=== PATIENT | female | born 1990 | race African-American/Black ===

== ENCOUNTER 2017-04-16 13:07 | Emergency (ER) | payer SELFPAY ==
[2017-04-16] MEDS ORDERED: NORMAL SALINE 1000 ML 1,000 ML IV ONE (14:29)
--- NOTE | 2017-04-16 14:30 | ER Document Report ---
ED Medical Screen (RME) - General Chief Complaint: Flank Pain Stated Complaint: FLANK PAIN Time Seen by Provider: 04/16/17 14:28 Notes: Patient reports approximately 3 days of right flank pain radiating into the right lower abdomen. With vomiting and fevers and chills. No previous history of surgeries. No chronic medical conditions. She denies any vaginal discharge or bleeding. TRAVEL OUTSIDE OF THE [place] IN LAST 30 DAYS: No - Related Data Allergies/Adverse Reactions: No Known Allergies Allergy (Verified 06/23/14 14:52) Past Medical History - Social History Frequency of alcohol use: Social Drug Abuse: None Renal/ Medical History: Denies: Hx Peritoneal Dialysis - Immunizations Immunizations up to date: Yes Hx Diphtheria, Pertussis, Tetanus Vaccination: Yes Physical Exam - Vital signs Vitals: Temp Pulse Resp BP Pulse Ox 100.1 F 93 13 121/67 99 04/16/17 13:36 04/16/17 13:36 04/16/17 13:36 04/16/17 13:36 04/16/17 13:36 Course - Vital Signs Vital signs: Temp Pulse Resp BP Pulse Ox 100.1 F 93 13 121/67 99 04/16/17 13:36 04/16/17 13:36 04/16/17 13:36 04/16/17 13:36 04/16/17 13:36
[2017-04-16 14:59] LABS: HEMOGLOBIN 14.2 g/dL (12.0-15.5); HGB HCT DIFFERENCE 1.6; MEAN CORPUSCULAR HEMOGLOBIN 33.2 pg (27.0-33.4); MEAN CORPUSCULAR HGB CONC 34.7 g/dL (32.0-36.0); MEAN CORPUSCULAR VOLUME 96 fl (80-97); RED BLOOD COUNT 4.28 10^6/uL (3.72-5.28); RED CELL DISTRIBUTION WIDTH 13.1 % (11.5-14.0); WHITE BLOOD COUNT 17.1 10^3/uL (4.0-10.5)
[2017-04-16 15:04] LABS: APPEARANCE,URINE SLIGHTLY-CLOUDY; BILIRUBIN,URINE NEGATIVE (NEGATIVE); CALCIUM OXALATE CRYSTALS,URINE FEW /HPF; GLUCOSE, URINE NEGATIVE (NEGATIVE); KETONES,URINE 20 mg/dL (NEGATIVE); LEUKOCYTE ESTERASE,URINE MODERATE (NEGATIVE); NITRITE,URINE NEGATIVE (NEGATIVE); PROTEIN,URINE 100 mg/dL (NEGATIVE); URINE SPECIFIC GRAVITY 1.016; UROBILINOGEN,URINE NEGATIVE mg/dL (<2.0)
[2017-04-16 15:18] LABS: ALANINE AMINOTRANSFERASE 19 U/L (9-52); ALBUMIN 4.5 g/dL (3.5-5.0); ALKALINE PHOSPHATASE 55 U/L (38-126); ANION GAP 13 (5-19); ASPARTATE AMINO TRANSFERASE 14 U/L (14-36); BILIRUBIN,DIRECT 0.4 mg/dL (0.0-0.4); BILIRUBIN,TOTAL 0.9 mg/dL (0.2-1.3); BLOOD UREA NITROGEN 9 mg/dL (7-20); CALCIUM 9.7 mg/dL (8.4-10.2); CARBON DIOXIDE 26 mmol/L (22-30); CHLORIDE 100 mmol/L (98-107); GLUCOSE 137 mg/dL (75-110); LIPASE 40.1 U/L (23-300); POTASSIUM 3.4 mmol/L (3.6-5.0); SODIUM 139.3 mmol/L (137-145); TOTAL PROTEIN 7.6 g/dL (6.3-8.2)
[2017-04-16 15:30] LABS: BAND NEUTROPHILS % (MANUAL) 7 % (3-5); BASOPHILS % (MANUAL) 0 % (0-2); EOSINOPHILS % (MANUAL) 0 % (0-6); LYMPHOCYTES % (MANUAL) 5 % (13-45); TOTAL CELLS COUNTED 100
[2017-04-16 15:31] LABS: RBC MORPHOLOGY COMMENT NORMO-CYTIC/CHROMIC; TOXIC GRANULATION SLIGHT
[2017-04-16] MEDS ORDERED: LEVOFLOXACIN 750 MG/D5W RTU 750 MG/150 ML RTUPB IV ONE (15:48)
[2017-04-16] MEDS ORDERED: KETOROLAC TROMETHAMINE INJ/PF 30 MG/1 ML SDV IV ONE (15:49)
--- NOTE | 2017-04-16 16:04 | ER Document Report ---
ED GI/ - General Mode of Arrival: Ambulatory Information source: Patient TRAVEL OUTSIDE OF THE [place] IN LAST 30 DAYS: No <LIZZY COMBS - Last Filed: 04/16/17 16:06> <GABRIEL BUNCH - Last Filed: 04/16/17 18:05> - General Chief Complaint: Flank Pain Stated Complaint: FLANK PAIN Time Seen by Provider: 04/16/17 14:28 Notes: Patient is a 26 year old female that presents to the emergency department today with complaints of right sided flank and abdominal pain which began three days ago. Patient also mentions that she has had pain with urination. Patient adds that walking seems to exacerbate her pain. Patient denies a history of kidney stones. (LIZZY COMBS) - Related Data Allergies/Adverse Reactions: No Known Allergies Allergy (Verified 06/23/14 14:52) Past Medical History - General Information source: Patient - Social History Smoking Status: Current Every Day Smoker Cigarette use (# per day): Yes Frequency of alcohol use: Social Drug Abuse: None Lives with: Family Family History: Reviewed & Not Pertinent Patient has suicidal ideation: No Patient has homicidal ideation: No - Medical History Medical History: Negative Surgical Hx: Negative - Immunizations Immunizations up to date: Yes Hx Diphtheria, Pertussis, Tetanus Vaccination: Yes <LIZZY COMBS - Last Filed: 04/16/17 16:06> Review of Systems - Review of Systems Constitutional: Fever EENT: No symptoms reported Cardiovascular: No symptoms reported Respiratory: No symptoms reported Gastrointestinal: No symptoms reported Genitourinary: See HPI, Dysuria, Flank pain Female Genitourinary: No symptoms reported Musculoskeletal: No symptoms reported Skin: No symptoms reported Hematologic/Lymphatic: No symptoms reported Neurological/Psychological: No symptoms reported <LIZZY COMBS - Last Filed: 04/16/17 16:06> Physical Exam <LIZZY COMBS - Last Filed: 04/16/17 16:06> <GABRIEL BUNCH - Last Filed: 04/16/17 18:05> - Vital signs Vitals: Temp Pulse Resp BP Pulse Ox 100.1 F 93 13 121/67 99 04/16/17 13:36 04/16/17 13:36 04/16/17 13:36 04/16/17 13:36 04/16/17 13:36 - Notes Notes: Physical Exam: General: Alert, appears mildly uncomfortable. HEENT: Normocephalic. Atraumatic. PERRL. Extraocular movements intact. Oropharynx clear. Neck: Supple. Non-tender. Respiratory: No respiratory distress. Clear and equal breath sounds bilaterally. Cardiovascular: Regular rate and rhythm. Abdominal: RUQ tenderness with palpation. No distension. Normal Bowel Sounds. Back: Right flank tenderness to percussion. No deformity or step off. Extremities: Moves all four extremities. Upper extremities: Normal inspection. Normal ROM. Lower extremities: Normal inspection. No edema. Normal ROM. Neurological: Normal cognition. AAOx4. Normal speech. Psychological: Normal affect. Normal Mood. Skin: Warm. Dry. Normal color. (LIZZY COMBS) Course - Laboratory Result Diagrams: 04/16/17 14:40 04/16/17 14:40 <LIZZY COMBS - Last Filed: 04/16/17 16:06> - Laboratory Result Diagrams: 04/16/17 14:40 04/16/17 14:40 - Diagnostic Test Radiology reviewed: Image reviewed, Reports reviewed - CT scan is consistent with right pyelonephritis <GABRIEL BUNCH - Last Filed: 04/16/17 18:05> - Vital Signs Vital signs: Temp Pulse Resp BP Pulse Ox 100.1 F 93 13 121/67 99 04/16/17 13:36 04/16/17 13:36 04/16/17 13:36 04/16/17 13:36 04/16/17 13:36 - Laboratory Laboratory results interpreted by me: 04/16/17 04/16/17 04/16/17 14:40 14:40 14:40 WBC 17.1 H Plt Count 134 L Seg Neuts % (Manual) 84 H Band Neutrophils % 7 H Lymphocytes % (Manual) 5 L Abs Neuts (Manual) 15.6 H Potassium 3.4 L Glucose 137 H Urine Protein 100 H Urine Ketones 20 H Urine Blood MODERATE H Ur Leukocyte Esterase MODERATE H Discharge <LIZZY COMBS - Last Filed: 04/16/17 16:06> <GABRIEL BUNCH - Last Filed: 04/16/17 18:05> - Discharge Clinical Impression: Pyelonephritis Leukocytosis Qualifiers: Leukocytosis type: bandemia Qualified Code(s): D72.825 - Bandemia Condition: Stable Disposition: HOME, SELF-CARE Additional Instructions: Pyelonephritis: Your evaluation shows evidence of pyelonephritis. This is an infection in the kidney. Typical symptoms are fever, pain in the flank, pain on urination, and frequent urination. Many cases of pyelonephritis can be treated at home. Hospital care may be necessary for patients who are very ill, or elderly or . Pyelonephritis is treated with antibiotics. Be sure to take all the medication as prescribed. Drink plenty of liquids (about three quarts per day) . You may take acetaminophen for fever. You should feel significantly improved within two days. You should have a recheck of your urine in about one week to insure that the infection is gone. Return for a re-examination if your symptoms worsen in any way -- such as high fever, shaking chills, severe weakness or dizziness, severe pain, or inability to pass your urine. TAKE THE MEDICATIONS PRESCRIBED. START THE CIPRO ANTIBIOTIC TOMORROW. DRINK PLENTY OF FLUIDS. REST. TAKE TYLENOL AND IBUPROFEN FOR PAIN AND FEVER IF NEEDED. FOLLOW UP WITH A LOCAL MEDICAL DOCTOR IF NOT IMPROVING. RETURN TO THE EMERGENCY ROOM IF ANY NEW OR WORSENING SYMPTOMS. Prescriptions: Ciprofloxacin HCl [Cipro 500 mg Tablet] 500 mg PO BID #14 tablet Ondansetron HCl [Zofran 4 mg Tablet] 1 - 2 tab PO Q4H PRN #12 tablet PRN Reason: Forms: Return to Work Scribe Attestation: 04/16/17 17:30 I personally performed the services described in the documentation, reviewed and edited the documentation which was dictated to the scribe in my presence, and it accurately records my words and actions. (GABRIEL BUNCH) Scribe Documentation - Scribe Written by Michelle:: Michelle Galloway, 04/16/2017 1611 acting as scribe for :: Zuleyma <LIZZY COMBS - Last Filed: 04/16/17 16:06>
--- NOTE | 2017-04-16 17:02 | RADIOLOGY REPORT (SQ) ---
EXAM DESCRIPTION: CT LTD RENAL STONE PROTOCOL ON COMPLETED DATE/TIME: 04/16/2017 4:50 pm REASON FOR STUDY: pyelonephritis, hematuria, ca ox crystals COMPARISON: None. TECHNIQUE: CT scan of the abdomen and pelvis performed without intravenous or oral contrast. Images reviewed with lung, soft tissue, and bone windows. Reconstructed coronal and sagittal MPR images revi ewed. All images stored on PACS. All CT scanners at this facility use dose modulation, iterative reconstruction, and/or weight based d osing when appropriate to reduce radiation dose to as low as reasonably achievable (ALARA). [facility]: Dose Right [facility]: CareDose [facility]: Dose Right [facility]: Teradose 4D [facility]: Smart [employer] RADIATION DOSE: Up-to-date CT equipment and radiation dose reduction techniques were employed. CTDIv ol: 4.8 mGy. DLP: 239 mGy-cm.mGy. LIMITATIONS: None. FINDINGS: LOWER CHEST: No significant findings. No nodules or infiltrates. NON-CONTRASTED LIVER, SPLEEN, ADRENALS: Evaluation limited by lack of IV contrast. No identified sign ificant masses. PANCREAS: No masses. No peripancreatic inflammatory changes. GALLBLADDER: No identified stones by CT criteria. No inflammatory changes to suggest cholecystitis. RIGHT KIDNEY AND URETER: No suspicious masses. Assessment limited by lack of IV contrast. Perinephr ic stranding. No urinary tract stones identified. Mild hydronephrosis. LEFT KIDNEY AND URETER: No suspicious masses. Assessment limited by lack of IV contrast. No signifi cant calcifications. No hydronephrosis or hydroureter. AORTA AND RETROPERITONEUM: No aneurysm. No retroperitoneal masses or adenopathy. BOWEL AND PERITONEAL CAVITY: No obvious masses or inflammatory changes. No free fluid. APPENDIX: Not visualized. PELVIS, BLADDER, AND ABDOMINAL WALL:No abnormal masses. No free fluid. Bladder normal. BONES: No significant findings. OTHER: No other significant finding. IMPRESSION: Mild hydronephrosis and inflammatory changes in the right kidney without visualized urin julee tract stone. This could be due to recently passed stone or pyelonephritis. Correlation with uri nalysis is recommended. COMMENT: Quality ID # [id number]: Final reports with documentation of one or more dose reduction techniques (e.g., Automated exposure control, adjustment of the mA and/or kV according to patient size, use of iterative reconstruction technique) TECHNICAL DOCUMENTATION: JOB ID: [id number] [facility] [employer]- All Rights Reserved
[2017-04-16] MEDS ORDERED: CEFTRIAXONE 1 GM/D5W RTU 50 ML IV ONE (17:52)
[2017-04-16] MEDS ORDERED: ONDANSETRON ODT 4 MG TAB (6 TAB/DSPK) PO PRN (18:01)
[2017-04-16] MEDS ORDERED: HYDROCODONE/ACETAMINOPHEN 5-325 MG 6 TAB/DSPK PO PRN (18:01)
[2017-04-16 18:34] VITALS: BP 112/74
[2017-04-16] MEDS ORDERED: ACETAMINOPHEN 325 MG TABLET PO ONE (18:34)
[2017-04-16] MEDS ORDERED: CEFTRIAXONE 1 GM/D5W RTU 1 GM/50 ML RTUPB IV ONE (19:00)
== END 2017-04-16 19:06 | disposition home or self-care (01) ==
LOC: ER 13:07
DX: N12 Tubulo-interstitial nephritis, not specified as acute or chronic (principal); R10.31 Right lower quadrant pain; F17.210 Nicotine dependence, cigarettes, uncomplicated
CPT/HCPCS: 99284; 96361; 96375; 96365; 96367; 36415; 87040; 87086; 83690; 85025; 81025; 87077; 87088; 80053; 81001; 87186; 76380; J1885; J7030; J0696; J1956

== ENCOUNTER 2017-12-12 23:58 | Emergency (ER) | payer SELFPAY ==
[2017-12-13] MEDS ORDERED: LIDOCAINE 1%/EPINEPHRINE INJ 20 ML VIAL INJ ONE (01:03)
[2017-12-13] MEDS ORDERED: DIPH/PERTUSS(ACELL)/TETANUS VAC/PF 0.5 ML SYR (>=10YO) IM ONE (01:04)
[2017-12-13] MEDS ORDERED: AMOXICILLIN TRIHYDRATE 500 MG CAPSULE PO ONE (01:04)
[2017-12-13] MEDS ORDERED: AMOXICILLIN TR/POT CLAVULANATE 500-125 MG TAB PO ONE (01:04)
--- NOTE | 2017-12-13 03:18 | ER Document Report ---
ED Animal Bite - General Chief Complaint: Dog Bite Stated Complaint: POSSIBLE DOG BITE Time Seen by Provider: 12/13/17 00:51 Notes: Patient is a 27-year-old female who comes emergency department for chief complaint of dog bite to the right lower leg. She states that she was walking outside when a random dog ran up to her and bit her. She states the dog ran away afterwards. She states it looked like a black and white pitbull. Animal control has not been called yet. TRAVEL OUTSIDE OF THE [place] IN LAST 30 DAYS: No - Related Data Allergies/Adverse Reactions: No Known Allergies Allergy (Verified 06/23/14 14:52) Past Medical History - General Information source: Patient - Social History Smoking Status: Never Smoker Drug Abuse: None Lives with: Spouse/Significant other Family History: Reviewed & Not Pertinent Patient has suicidal ideation: No Patient has homicidal ideation: No - Medical History Medical History: Negative Renal/ Medical History: Denies: Hx Peritoneal Dialysis Surgical Hx: Negative - Immunizations Immunizations up to date: Yes Hx Diphtheria, Pertussis, Tetanus Vaccination: Yes Review of Systems - Review of Systems Constitutional: No symptoms reported EENT: No symptoms reported Cardiovascular: No symptoms reported Respiratory: No symptoms reported Gastrointestinal: No symptoms reported Genitourinary: No symptoms reported Female Genitourinary: No symptoms reported Musculoskeletal: See HPI Skin: See HPI Hematologic/Lymphatic: No symptoms reported Neurological/Psychological: No symptoms reported Physical Exam - Vital signs Vitals: Temp Pulse Resp BP Pulse Ox 98.6 F 112 H 18 155/100 H 100 12/13/17 00:21 12/13/17 00:12/13/17 00:12/13/17 00:12/13/17 00:21 - Notes Notes: GENERAL: Alert, interacts well. No acute distress. HEAD: Normocephalic, atraumatic. EYES: Pupils equal, round, and reactive to light. Extraocular movements intact. ENT: Oral mucosa moist, tongue midline. NECK: Full range of motion. Supple. Trachea midline. LUNGS: Clear to auscultation bilaterally, no wheezes, rales, or rhonchi. No respiratory distress. HEART: Regular rate and rhythm. No murmur ABDOMEN: Soft, non-tender. Non-distended. Bowel sounds present in all 4 quadrants. EXTREMITIES: Right leg distally over the lateral aspect has to 3 cm gaping wounds, down through subcutaneous tissue, communicating. Medial aspect has a large 6 cm V-shaped gaping wound down through subcutaneous tissue. No evidence of tendon, muscle, nerve, or large vessel injury. Normal strength, range of motion, ambulation, distal neurovascular exam. BACK: no cervical, thoracic, lumbar midline tenderness. No saddle anesthesia, normal distal neurovascular exam. NEUROLOGICAL: Alert and oriented x3. Normal speech. [cranial nerves II through XII grossly intact]. PSYCH: Normal affect, normal mood. SKIN: Warm, dry, normal turgor. No rashes or lesions noted. Course - Re-evaluation Re-evalutation: Requested nurse to complete dog bite form. Tetanus updated. Started on antibiotics. Patient with multiple deep wounds down to the muscle but not including the muscle and no evidence of tendon, ligament, large vessel, or nerve damage. Areas were cleaned thoroughly, approximated because of the large gaping wounds, he did leave small areas for drainage, discussed wound care and return precautions in detail. I discussed rabies vaccine and immunoglobulin, however this was declined. - Vital Signs Vital signs: Temp Pulse Resp BP Pulse Ox 98.9 F 100 18 147/101 H 97 12/13/17 03:32 12/13/17 03:32 12/13/17 00:21 12/13/17 03:32 12/13/17 03:32 Procedures - Laceration/Wound Repair Right lateral leg #1 Wound length (cm): 3 Wound's Depth, Shape: Irregular Laceration pre-procedure: Sterile PPE donned, Sterile drapes applied, Shur- Clens applied Anesthetic type: 1% Lidocaine w/epi Volume Anesthetic (mLs): 3 Wound explored: Clean, No foreign body removed Irrigated w/ Saline (mLs): 40 Wound Repaired With: Sutures Suture Size/Type: 3:0, Nylon Number of Sutures: 5 - vertical matress Post-procedure wound care: Sterile dressing applied Post-procedure NV exam normal: Yes Complications: No Right lateral leg #2 Wound length (cm): 3 Wound's Depth, Shape: Irregular Laceration pre-procedure: Sterile PPE donned, Sterile drapes applied, Shur- Clens applied Anesthetic type: 1% Lidocaine w/epi Volume Anesthetic (mLs): 3 Wound explored: Clean, No foreign body removed Irrigated w/ Saline (mLs): 40 Wound Debrided: Minimal Wound Repaired With: Sutures Suture Size/Type: 3:0, Nylon Number of Sutures: 5 - vertical matress Post-procedure wound care: Sterile dressing applied Post-procedure NV exam normal: Yes Complications: No Right medial leg Wound length (cm): 6 Wound's Depth, Shape: Irregular, Flap Laceration pre-procedure: Sterile PPE donned, Sterile drapes applied, Shur- Clens applied Anesthetic type: 1% Lidocaine w/epi Volume Anesthetic (mLs): 4 Wound explored: Clean, No foreign body removed Irrigated w/ Saline (mLs): 60 Wound Repaired With: Sutures Suture Size/Type: 3:0, Nylon Number of Sutures: 9 Layer Closure?: Yes Deep Layer Suture Size/Type: 5:0, Other - vicryl Number Deep Layer Sutures: 4 Post-procedure wound care: Sterile dressing applied Post-procedure NV exam normal: Yes Complications: No Discharge - Discharge Clinical Impression: Laceration of skin Dog bite Qualifiers: Encounter type: initial encounter Qualified Code(s): W54.0XXA - Bitten by dog, initial encounter Condition: Stable Disposition: HOME, SELF-CARE Additional Instructions: The lacerations had to be closed because of their extent. Clean gently with soap and water, apply topical antibiotic, take oral antibiotic as prescribed. Keep wounds clean and dressed, avoid soaking. They will ooze for the first few days. Sutures need to come out in about 10 days at a medical facility. Follow- up with primary care. Return if you worsen including redness, swelling, discolored drainage, fever, or any other concerning symptoms. Prescriptions: Amox Tr/Potassium Clavulanate [Augmentin 875-125 Tablet] 1 tab PO BID 7 Days tablet Forms: Return to Work, Elevated Blood Pressure
[2017-12-13 04:32] VITALS: BP 147/101
== END 2017-12-13 03:50 | disposition home or self-care (01) ==
LOC: ER 23:58
DX: S81.851A Open bite, right lower leg, initial encounter (principal); W54.0XXA Bitten by dog, initial encounter; Y93.01 Activity, walking, marching and hiking; Z23 Encounter for immunization
CPT/HCPCS: 99283; 90471; 90715; 12002; 12032; J3490

== ENCOUNTER 2017-12-25 10:51 | Emergency (ER) | payer SELFPAY ==
[2017-12-25 11:02] VITALS: BP 145/94
--- NOTE | 2017-12-25 11:14 | ER Document Report ---
ED Suture/Wound Recheck - General Chief Complaint: Suture Removal Stated Complaint: SUTURE REMOVAL Time Seen by Provider: 12/25/17 11:10 Mode of Arrival: Ambulatory Information source: Patient Notes: 27-year-old female presented ED for removal of sutures from her right leg. She states the sutures were placed 13 days ago for an injury. States she still has pain at a 1/5. Patient is alert and oriented respirations regular unlabored speaking in full sentences walks with a even steady gait. TRAVEL OUTSIDE OF THE [place] IN LAST 30 DAYS: No - HPI Previous ED treatment: Dog bite Antibiotics given previously: Prescription Quality of pain: Achy Severity: Mild Pain Level: 1 Context: Injury Symptoms since procedure: Pain - Very mild pain Exacerbated by: Movement, Walking Relieved by: Denies - Related Data Allergies/Adverse Reactions: No Known Allergies Allergy (Verified 12/25/17 10:52) Past Medical History - General Information source: Patient - Social History Smoking Status: Current Every Day Smoker Cigarette use (# per day): Yes - 6 cigarettes a day Chew tobacco use (# tins/day): No Smoking Education Provided: Yes - 4 minutes Frequency of alcohol use: Occasional Drug Abuse: None Occupation: [employer] Lives with: Spouse/Significant other Family History: Reviewed & Not Pertinent Patient has suicidal ideation: No Patient has homicidal ideation: No - Past Medical History Cardiac Medical History: Reports: None Pulmonary Medical History: Reports: None EENT Medical History: Reports: None Neurological Medical History: Reports: None Endocrine Medical History: Reports: None Renal/ Medical History: Reports: None Malignancy Medical History: Reports: None GI Medical History: Reports: None Musculoskeltal Medical History: Reports Hx Musculoskeletal Trauma Skin Medical History: Reports None Psychiatric Medical History: Reports: None Traumatic Medical History: Reports: Hx Fractures - Right finger Infectious Medical History: Reports: None Surgical Hx: Negative Past Surgical History: Reports: None - Immunizations Immunizations up to date: Yes Hx Diphtheria, Pertussis, Tetanus Vaccination: Yes Review of Systems - Review of Systems Constitutional: No symptoms reported EENT: No symptoms reported Cardiovascular: No symptoms reported Respiratory: No symptoms reported Gastrointestinal: No symptoms reported Genitourinary: No symptoms reported Female Genitourinary: No symptoms reported Musculoskeletal: Other - Right finger fracture Skin: No symptoms reported Hematologic/Lymphatic: No symptoms reported Neurological/Psychological: No symptoms reported -: Yes All other systems reviewed and negative Physical Exam - Vital signs Vitals: Temp Pulse Resp BP Pulse Ox 98.1 F 71 16 145/94 H 98 12/25/17 11:00 12/25/17 11:12/25/17 11:12/25/17 11:12/25/17 11:00 Interpretation: Normal - General General appearance: Appears well, Alert - HEENT Head: Normocephalic, Atraumatic Eyes: Normal Pupils: PERRL - Respiratory Respiratory status: No respiratory distress Chest status: Nontender Breath sounds: Normal Chest palpation: Normal - Cardiovascular Rhythm: Regular Heart sounds: Normal auscultation Murmur: No - Abdominal Inspection: Normal Distension: No distension Bowel sounds: Normal Tenderness: Nontender Organomegaly: No organomegaly - Back Back: Normal, Nontender - Extremities General upper extremity: Normal inspection, Nontender, Normal color, Normal ROM , Normal temperature General lower extremity: Normal color, Normal ROM, Normal temperature, Normal weight bearing. No: Edwige's sign Calf: Tender, Other - 5 vertical mattress sutures in the right lateral leg, 5 sutures to another laceration to the right lateral leg and 9 sutures to the right posterior medial leg from dog bites to the lateral and posterior leg there is some swelling to the leg no redness no drainage no signs or symptoms of infection. The sutures were very tight and the leg was edematous. - Neurological Neuro grossly intact: Yes Cognition: Normal Orientation: AAOx4 [place] Scale Eye Opening: Spontaneous [place] Com[place] Scale Verbal: Oriented [place] Com[place] Scale Motor: Obeys Commands Liliane Coma Scale Total: 15 Speech: Normal Motor strength normal: LUE, RUE, LLE, RLE Sensory: Normal - Psychological Associated symptoms: Normal affect, Normal mood - Skin Skin Temperature: Warm Skin Moisture: Dry Skin Color: Normal Course - Re-evaluation Re-evalutation: 12/25/17 13:51 Sutures removed from the right calf, site had been cleaned then benzoin and Steri-Strip applied to the injuries as the wounds were very tight and could possibly open a little bit due to the swelling and edema to the calf. There is no redness or inflammation noted. She was discharged home and instructed to follow-up with the primary doctor. - Vital Signs Vital signs: Temp Pulse Resp BP Pulse Ox 98.1 F 71 16 145/94 H 98 12/25/17 11:00 12/25/17 11:00 12/25/17 11:00 12/25/17 11:00 12/25/17 11:00 Discharge - Discharge Clinical Impression: Visit for suture removal Condition: Stable Disposition: HOME, SELF-CARE Instructions: Family Physicians / Practices, Care of Steri-Strip Closure ([facility]) , Suture Removal Additional Instructions: Acetaminophen Acetaminophen may be taken for pain relief or fever control. It's much safer than aspirin, offering a wider range of "safe" dosages. It is safe during . Some brand names are Tylenol, Panadol, Datril, Anacin 3, Tempra, and Liquiprin. Acetaminophen can be repeated every four hours. The following are maximum recommended dosages: WEIGHT Dose Drops Elixir Chewable( 80mg) (LBS.) drprs=droppers tsp=teaspoon 6 40 mg .4 ml (1/2) 6-11 80 mg .8 ml (full) 1/2 tsp 1 tab 12-16 120 mg 1 1/2 drprs 3/4 tsp 1 1/2 tabs 17-23 160 mg 2 drprs 1 tsp 2 tabs 24-30 240 mg 3 drprs 1 1/2 tsp 3 tabs 30-35 320 mg 2 tsp 4 tabs 36-41 360 mg 2 1/4 tsp 4 1 /2 tabs 42-47 400 mg 2 1/2 tsp 5 tabs 48-53 480 mg 3 tsp 6 tabs 54-59 520 mg 3 1/4 tsp 6 1 /2 tabs 60-64 560 mg 3 1/2 tsp 7 tabs 65-70 600 mg 3 3/4 tsp 7 1 /2 tabs 71-76 640 mg 4 tsp 8 tabs 77-82 720 mg 4 1/2 tsp 9 tabs 83-88 800 mg 5 tsp 10 tabs >89 pounds or adults 650 mg to 900 mg Acetaminophen can be repeated every four hours. Maximum daily dose not to exceed 4000 mg. These maximum recommended dosages are slightly higher than the dosages written on the product container, but these dosages are very safe and well below the toxic dosage for acetaminophen. Ibuprofen Ibuprofen is an excellent, safe drug for pain control. In addition, it has potent antiinflammatory effects which are beneficial, especially in the treatment of injuries, arthritis, or tendonitis. It's best to take ibuprofen with food. Persons with ulcer disease or allergy to aspirin should notify their physician of this before taking ibuprofen. Take the medication exactly as prescribed. Don't take additional doses unless instructed to do so by your doctor. If you develop wheezing, shortness of breath, hives, faintness, stomach pain, vomiting, or dark black stools, return for re-evaluation at once. FOLLOW-UP CARE: If you have been referred to a physician for follow-up care, call the physician s office for an appointment as you were instructed or within the next two days. If you experience worsening or a significant change in your symptoms, notify the physician immediately or return to the Emergency Department at any time for re-evaluation. Forms: Elevated Blood Pressure, Smoking Cessation Education
== END 2017-12-25 11:48 | disposition home or self-care (01) ==
LOC: ER 10:51
DX: S81.811D Laceration without foreign body, right lower leg, subsequent encounter (principal); X58.XXXD Exposure to other specified factors, subsequent encounter; F17.210 Nicotine dependence, cigarettes, uncomplicated

== ENCOUNTER 2018-08-05 11:26 | Emergency (ER) | payer SELFPAY ==
[2018-08-05 11:33] VITALS: BP 132/90
[2018-08-05] MEDS ORDERED: DIPHENHYDRAMINE HCL 50 MG/ML VIAL IM ONE (11:54)
[2018-08-05] MEDS ORDERED: FAMOTIDINE 20 MG TABLET PO ONE (11:54)
[2018-08-05] MEDS ORDERED: METHYLPREDNISOLONE INJ 125 MG/2 ML SDV IM ONE (11:54)
--- NOTE | 2018-08-05 12:00 | ER Document Report ---
HPI - HPI Time Seen by Provider: 08/05/18 11:48 Pain Level: 2 Notes: Patient is a 27-year-old female with no significant past medical history who presents emergency department complaining of generalized hives that began on her arms yesterday. Patient states that she has been using some Benadryl cream with minimal relief. Patient states that the rash is pruritic. She does recall using a new moisturizer prior to the start of her symptoms, but no other new chemicals/detergents/soaps/close/foods. She does not take medicines daily. Patient states that she did have an insect bite to the right medial ankle that has had some discomfort associated. She has not noticed any streaking or abscess. Denies drug allergies. Denies any headache, fever, neck pain, changes in vision/speech/mentation/hearing, drooling, hoarseness, URI, sore throat, chest pain, palpitations, syncope, cough, shortness of breath, wheeze, dyspnea, abdominal pain, nausea/vomiting/diarrhea, urinary retention, dysuria, hematuria, loss of control of bowel or bladder, numbness/tingling, saddle anesthesia, muscle paralysis/weakness. - ROS Systems Reviewed and Negative: Yes All other systems reviewed and negative - REPRODUCTIVE Reproductive: DENIES: : Past Medical History - Social History Smoking Status: Never Smoker Family History: Reviewed & Not Pertinent Renal/ Medical History: Denies: Hx Peritoneal Dialysis Musculoskeletal Medical History: Reports Hx Musculoskeletal Trauma Traumatic Medical History: Reports: Hx Fractures - Right finger - Immunizations Immunizations up to date: Yes Hx Diphtheria, Pertussis, Tetanus Vaccination: Yes Vertical Provider Document - CONSTITUTIONAL Agree With Documented VS: Yes Notes: PHYSICAL EXAMINATION: GENERAL: Well-appearing, well-nourished and in no acute distress. HEAD: Atraumatic, normocephalic. EYES: Pupils equal round and reactive to light, extraocular movements intact, sclera anicteric, conjunctiva are normal. ENT: EAC clear b/l. TM's intact b/l without erythema, fluid, or perforation. Nares patent and without discharge. oropharynx clear without exudates. No tonsilar hypertrophy or erythema. Moist mucous membranes. No sinus tenderness. No angioedema or airway compromise. NECK: Normal range of motion, supple without lymphadenopathy LUNGS: Breath sounds clear to auscultation bilaterally and equal. No wheezes rales or rhonchi. HEART: Regular rate and rhythm without murmurs, rubs, gallops. ABDOMEN: Soft, nontender, nondistended abdomen. No guarding, no rebound. No masses appreciated. Normal bowel sounds present. No CVA tenderness bilaterally. Musculoskeletal: FROM to passive/active. Strength 5+/5. Extremities: No cyanosis, clubbing, or edema b/l. Peripheral pulses 2+. Capillary refill less than 3 seconds. NEUROLOGICAL: Cranial nerves grossly intact. Normal speech, normal gait. Normal sensory, motor exams PSYCH: Normal mood, normal affect. SKIN: Generalized hives primarily to her extremities sparing the palms, soles, and oral mucosa. Nontender. There is also a mildly erythemic area noted to the medial right ankle (location of insect bite) that has minimal tenderness without significant induration, fluctuance, purulence, or streaks. Size is approximately 1 cm in diameter with mild surrounding erythema. No point of maximal tenderness to that spot. - INFECTION CONTROL TRAVEL OUTSIDE OF THE [place] IN LAST 30 DAYS: No Course - Re-evaluation Re-evalutation: 08/05/18 12:50 Patient is an afebrile, well-hydrated, 27-year-old female who presents the emergency department with hives, unspecified, and insect bite to her right medial ankle with a mild cellulitis component. Vitals are acceptable without significant tachycardia, tachypnea, or hypoxia. PE is otherwise unremarkable. Patient is nontoxic-appearing and is tolerating p.o. without difficulty. No incision and drainage is warranted at this time based on H&P. Patient was given Solu-Medrol, Benadryl, and Pepcid today. Her rash has improved from initial evaluation and pt does not want to wait in the ED any longer. Low suspicion for any sepsis, meningitis, severe dehydration, respiratory compromise, angioedema, or other systemic emergent condition at this time. Patient is aware that condition can change from initial presentation and she needs to monitor symptoms closely and seek medical attention with any acute changes. I did review medicines with Dr. Snyder. We will hold off on any steroid taper as I will be covering the mild cellulitis with an antibiotic. I did review with the patient that she needs to use Benadryl and Pepcid in combination routinely for the next couple days and monitor symptoms. Recheck with your PCM this week. Return to the ED with any other worsening/concerning symptoms as reviewed. Patient is in agreement. - Vital Signs Vital signs: Temp Pulse Resp BP Pulse Ox 99.2 F 80 16 132/90 H 98 08/05/18 11:32 08/05/18 11:32 08/05/18 11:32 08/05/18 11:32 08/05/18 11:32 Discharge - Discharge Clinical Impression: Hives Cellulitis Qualifiers: Site of cellulitis: extremity Site of cellulitis of extremity: lower extremity Laterality: right Qualified Code(s): L03.115 - Cellulitis of right lower limb Condition: Stable Disposition: HOME, SELF-CARE Instructions: Cephalexin ([facility]), Trimethoprim-Sulfa ([facility]) Additional Instructions: Keep the skin clean Wash with soap and water Tylenol/ibuprofen if needed Triple antibiotic ointment daily Take medication as directed Benadryl 50mg (every 6 hours) and Pepcid 20mg (twice daily) Monitor for any worsening symptoms Recheck with your PCM in 3-5 days Return to the ED with any worsening symptoms and/or development of fever, headache, drooling, hoarseness, swelling of the lip/tongue/throat, chest pain, palpitations, syncope, shortness of breath, trouble breathing, abdominal pain, n/v/d, abscess, purulent discharge, red streaks, worsening swelling, or other worsening symptoms that are concerning to you. Prescriptions: Cephalexin Monohydrate [Keflex 500 mg Capsule] 500 mg PO TID #30 capsule Sulfamethoxazole/Trimethoprim [Bactrim Ds Tablet] 1 each PO BID #20 tablet Forms: Elevated Blood Pressure Referrals: [facility] [Provider Group] - Follow up as needed [facility] [Provider Group] - Follow up as needed
== END 2018-08-05 12:59 | disposition home or self-care (01) ==
LOC: ER 11:26
DX: L50.9 Urticaria, unspecified (principal); L03.315 Cellulitis of perineum
CPT/HCPCS: 99282; 96372; J1200; J2930